=== PATIENT | male | born 1995 | race Two or more races ===

== ENCOUNTER → 2025-01-26 | Outpatient (CLI) | payer MEDICAID, SELFPAY ==
--- NOTE | 2025-01-26 11:30 | XR_ITS ---
Examination: Retroperitoneal ultrasound, complete Technique: Multiple high resolution grayscale images of the retroperitoneum obtained, including kidneys and bladder. Exam date and time:January 26, 2025 1123 hours INDICATIONS: Left lower abdomen pain right flank pain beginning 3 weeks ago with hematuria laboratory examination 3 weeks ago. FINDINGS: Right kidney 10.7 cm cortex 2.0 cm Left kidney 10.9 cm cortex 2.2 cm Moderate bilateral renal parenchymal scar formation Contracted urinary bladder Negative for prostatomegaly IMPRESSION: Moderate bilateral renal parenchymal scar formation
== END | disposition home or self-care (01) ==
PROVIDERS: Referring Provider Emergency Medicine; Visit Provider Emergency Medicine
DX: N28.89 Other specified disorders of kidney and ureter (principal)
CPT/HCPCS: 76770